=== PATIENT | female | born 1980 | race Caucasian/White ===

== ENCOUNTER 2024-08-30 22:29 | Emergency (ER) | payer MEDICAID ==
[~2024-08-30] VITALS: Ht 162.6 cm; Wt 61.0 kg
[~2024-08-30 22:29] MED LIST: CEPH500C2; NOVOLOG
[2024-08-30 23:00] VITALS: TEMP 36.7; O2SAT 98
[2024-08-31] MEDS: ACETAMINOPHEN 325MG TABLET PO ONE (00:20)
[2024-08-31 01:07] LABS: BASOPHILS % 0.6 % (0.0-2.0); EOSINOPHILS % 1.3 % (0.0-5.0); HEMOGLOBIN. 12.4 g/dL (12.0-16.0); LYMPHOCYTES % 29.4 % (20.0-50.0); MEAN CORPUSCULAR HEMOGLOBIN 27.6 pg (28.0-32.0); MEAN CORPUSCULAR HGB CONC 33.5 g/dL (31.0-37.0); MEAN CORPUSCULAR VOLUME 82.5 fL (81.0-99.0); MEAN PLATELET VOLUME 9.8 fl (7.4-10.4); MONOCYTES % 6.1 % (2.0-8.0); NEUTROPHILS % 62.6 % (40.0-76.0); PLATELET 301 x1000/uL (130-400); RED BLOOD CELL COUNT 4.48 mill/uL (4.2-5.4); RED CELL DISTRIBUTION WIDTH 13.4 % (11.6-14.6); WHITE BLOOD COUNT 13.8 x1000/uL (4.5-11.0)
[2024-08-31 01:20] LABS: POTASSIUM 4.6 mEq/L (3.5-5.1)
[2024-08-31 01:21] LABS: CALCIUM 9.2 mg/dL (8.7-10.4)
[2024-08-31 01:25] VITALS: BP 142/72; PULSE 94; RESP 18; O2SAT 98
[2024-08-31 01:27] LABS: HCG SCREEN NEGATIVE
[2024-08-31] MEDS ORDERED: CYCL5TAB3 MT (02:37)
== END 2024-08-31 02:35 | disposition left against medical advice (07) ==
LOC: ER 22:29
DX: M79.604 Pain in right leg (principal); M79.605 Pain in left leg; E11.42 Type 2 diabetes mellitus with diabetic polyneuropathy; D72.829 Elevated white blood cell count, unspecified; E11.9 Type 2 diabetes mellitus without complications; Z98.890 Other specified postprocedural states; Z90.710 Acquired absence of both cervix and uterus; Z79.899 Other long term (current) drug therapy
CPT/HCPCS: 36415; 80048; 84550; 84703; 85025; 93970; 99284